=== PATIENT | male | born 1995 | race African-American/Black ===

== ENCOUNTER 2020-05-01 09:31 | Emergency (ER) | payer OTHER ==
[~2020-05-01] VITALS: Ht 165.1 cm; Wt 76.8 kg
[2020-05-01 09:31] VITALS: BP 123/68
--- NOTE | 2020-05-01 09:52 | PHYS DOC ---
General Adult EDM: Chief Complaint: SKIN RASH/ABSCESS HPI: HPI: Patient is a 24-year-old male with itching to his right hand since he woke up this morning. Says itching is now on his left hand as well. Is he has redness to his hand with a rash. Denies any new medications, new detergents, new lotions or fragrances. Has not been working outside with plants. Has a history of seasonal allergies but no known medication or food allergies. Denies any symptoms of his mouth, throat, lungs. Has not taken anything prior to arrival. No fevers and patient states he otherwise has been well Review of Systems: Review of Systems: All other systems within normal limits except for as noted in the HPI Allergies: Allergies: Allergies Coded Allergies Type Severity Reaction Last Updated Verified No Known Drug Allergies 05/01/20 No Physical Exam: PE: Constitutional: Well developed, well nourished, no acute distress, non-toxic appearance. [] HENT: Normocephalic, atraumatic, bilateral external ears normal, nose normal. [] Eyes: PERRLA, conjunctiva normal, no discharge. [] Neck: No rigidity, supple, no stridor. [] Cardiovascular: Regular rate and rhythm, brisk cap refill [] Lungs & Thorax: Non labored symmetric respirations, no tachypnea or respiratory distress [] Abdomen: Soft, nondistended. Skin: Erythema to right hand and palm with raised papules. No rash noted to left hand. No signs of excoriation, vesicles, pustules [] Back: Unremarkable Extremities: No deformities, range of motion grossly intact, no lower extremity edema [] Neurologic: Alert and oriented X 3, no focal deficits noted. [] Psychologic: Affect normal, judgement normal, mood normal. [] EKG: EKG: [] Radiology/Procedures: Radiology/Procedures: [] Heart Score: Risk Factors: Risk Factors: DM, Current or recent (<one month) smoker, HTN, HLP, family history of CAD, obesity. Risk Scores: Score 0 - 3: 2.5% MACE over next 6 weeks - Discharge Home Score 4 - 6: 20.3% MACE over next 6 weeks - Admit for Clinical Observation Score 7 - 10: 72.7% MACE over next 6 weeks - Early Invasive Strategies Course & Med Decision Making: Course & Med Decision Making Patient symptoms improved with Benadryl. Will give topical steroid to use as needed for itching. Advised patient not to scratch and take Benadryl as needed for itching. Patient is awake and alert, states he is not sleepy from the Benadryl and feels okay to drive. Offered to call a cab. Patient declined and states that he feels he is not at risk to be driving. Dragon Disclaimer: Dragon Disclaimer: This electronic medical record was generated, in whole or in part, using a voice recognition dictation system. Departure Departure: Impression: Primary Impression: Rash due to allergy Disposition: 01 DC HOME SELF CARE/HOMELESS Condition: STABLE Referrals: PCP,UNKNOWN (PCP) Patient Instructions: Rash Scripts Triamcinolone Acetonide (KENALOG) 100 Gm Aerosol 1 DENISE TP TID PRN for RASH for 10 Days, #15 GM 0 Refills Prov: GLORY PRESSLEY MD 05/01/20 GLORY PRESSLEY MD May 01, 2020 09:52
[2020-05-01] MEDS ORDERED: diphenhydrAMINE 50 MG/ML VIAL IM ONE (10:00)
[2020-05-01] MEDS ORDERED: DEXAMETHASONE 4 MG TABLET PO ONE (10:00)
[2020-05-01] MEDS ORDERED: TRIA100A TP (10:32)
== END 2020-05-01 10:37 | disposition home or self-care (01) ==
LOC: ER 09:31
DX: T78.40XA Allergy, unspecified, initial encounter (principal); R21 Rash and other nonspecific skin eruption; L29.9 Pruritus, unspecified; X58.XXXA Exposure to other specified factors, initial encounter
CPT/HCPCS: 96372; 99283; J1200; J8540